=== PATIENT | female | born 2000 | race Caucasian/White ===

== ENCOUNTER 2024-05-14 20:29 | Emergency (ER) | payer OTHER, SELFPAY ==
--- NOTE | ~2024-05-14 | US_ITS ---
Pelvic ultrasound. Clinical History: First trimester , ectopic Technique: Realtime transabdominal and transvaginal scanning of the pelvis was performed. Color flow Doppler and Doppler spectral analysis were performed. Findings: The uterus is anteverted. The endometrial stripe has a thickness of 15 mm. No intrauterine gestational sac is identified. The right ovary measures 1.3 x 2.7 x 1.5 cm. No significant right ovarian or adnexal mass is seen. The left ovary measures 2.9 x 1.8 x 2.5 cm. No significant left ovarian or adnexal mass is seen. There is no evidence of free fluid in the cul de sac. Impression: Positive test without intrauterine gestation. Differential diagnosis includes early normal , spontaneous , or nonvisualized ectopic . Correlate clinically. Continued follow-up with serial beta hCG, and repeat ultrasound as warranted, is advised. Reviewed, dictated and finalized at [facility]. Impression: Positive test without intrauterine gestation. Differential diagnosis includes early normal , spontaneous , or nonvisualized ectopic . Correlate clinically. Continued follow-up with serial beta hCG, and repeat ultrasound as warranted, is advised.
[2024-05-14 20:35] VITALS: BP 138/90; PULSE 104; RESP 16; O2SAT 100
[2024-05-14 21:36] LABS: Basophils Percent Auto 0.4 % (0.2-1.2); Eosinophils Absolute Auto 0.2 K/mm3 (0-0.3); Eosinophils Percent Auto 2.5 % (0-4.4); Hematocrit 39.5 % (37.0-47.0); Hemoglobin 13.2 g/dL (12.0-15.0); Immature Granulocyte Absolute 0.01 K/mm3 (0.00-0.031); Immature Granulocyte Percent A 0.1 % (0-0.5); Lymphocytes Absolute Auto 1.64 K/mm3 (0.9-3.2); Lymphocytes Percent Auto 19.2 % (18.3-44.2); Mean Corpuscular HGB Conc 33.4 g/dl (32-36); Mean Corpuscular Hemoglobin 29.2 pg (26-34); Mean Corpuscular Volume 87.4 fl (80-100); Mean Platelet Volume 9.6 fl (7.4-10.4); Monocytes Absolute Auto 0.6 K/mm3 (0.1-0.6); Monocytes Percent Auto 6.9 % (2.6-8.5); Neutrophils Absolute Auto 6.1 K/mm3 (1.3-6.7); Neutrophils Percent Auto 70.9 % (45.5-73.1); Platelet Count Result 299 k/mm3 (150-375); Red Blood Count 4.52 M/mm3 (4.2-5.4); Red Cell Distribution Width 13.8 % (11.5-14.5); White Blood Count 8.6 K/mm3 (4.5-10.0)
[2024-05-14 21:47] LABS: Alanine Aminotransferase 26 U/L (6-35); Albumin Level 4.3 g/dL (3.5-5.1); Alkaline Phosphatase 94 U/L (38-126); Anion Gap 11 mmol/L (4-12); Aspartate Amino Transferase 25 U/L (14-36); Bilirubin,Total 0.5 mg/dL (0.2-1.3); Blood Urea Nitrogen 15 mg/dL (7-17); Calcium 8.9 mg/dL (8.4-10.2); Carbon Dioxide 23 mmol/L (22-30); Chloride 105 mmol/L (98-107); Estimated CRCL calculation 72 ml/min; Estimated Glomerular Filt Rate > 60; Glucose 98 mg/dL (65-110); Potassium 3.7 mmol/L (3.4-5.0); Prothrombin Time 13.4 Seconds (11.1-14.7); Sodium 139 mmol/L (137-145)
[2024-05-14 21:48] LABS: Partial Thromboplastin Time 28.6 Seconds (22.3-36.8)
[2024-05-14 22:04] LABS: Beta HCG Quantitative 67.89 mIU/ML
--- NOTE | 2024-05-14 22:42 | ED.FEMALEGU ---
HPI - Female Genitourinary General Chief complaint: Vaginal Bleeding Stated complaint: vag bleeding, 8 weeks Time Seen by Provider: 05/14/24 21:16 Source: patient Mode of arrival: ambulatory Limitations: no limitations History of Present Illness HPI Narrative: This is a 23-year-old female who presents to the ED with chief complaint of vaginal bleeding/ spotting that began today. Patient reports that she found out a couple of days ago at another facility that she had a positive test. Estimated to be around 8 weeks. She is 3 months And had a vaginal delivery without complication. . patient reports that today she noticed spotting on the toilet paper after intercourse with her partner. She had some mild lower abdominal cramps earlier this morning but those have been intermittent. States for currently she is asymptomatic. She has had no he significant bleeding. Denies lightheadedness, syncope, nausea, vomiting, urinary symptoms. Related Data Allergies Allergy/AdvReac Type Severity Reaction Status Date / Time No Known Allergies Allergy Verified 05/14/24 20:41 Review of Systems Review of Systems: All systems as dictated in HPI Exam Narrative: GENERAL: Well-appearing, well-nourished, and in no acute distress. HEAD: Normocephalic, atraumatic. EYES: PERRLA and EOMI. ENT: Nares clear, no rhinorrhea or epistaxis. Mucous membranes moist. Oropharynx without tonsillar hypertrophy exudate or other lesions. NECK: Supple. No adenopathy or masses. CHEST: No respiratory distress. Clear to auscultation. No wheezes rales or rhonchi HEART: Regular rate and rhythm. No murmur heard. Normal peripheral pulses. ABDOMEN: Soft, nontender, nondistended, normal active bowel sounds. MSK: Normal range of motion. No edema. SKIN: Warm, dry, no rash. NEURO: Alert and oriented x4. No focal deficits. PSYCH: Normal mood and affect. Course Reevaluation(s) Reevaluation #1: Patient is resting comfortably in the bed. Sleeping on my arrival. Date: 05/15/24 Time: 01:47 Vital Signs Vital signs: Vital Signs Pulse Rate 104 H 05/14/24 20:35 Respiratory Rate 16 05/14/24 20:35 Blood Pressure 138/90 05/14/24 20:35 Pulse Oximetry 100 05/14/24 20:35 Oxygen Delivery Room Air 05/14/24 20:35 Pulse Rate 83 05/15/24 00:12 Respiratory Rate 16 05/15/24 00:12 Blood Pressure 131/85 05/15/24 00:12 Pulse Oximetry 97 05/15/24 00:12 Oxygen Delivery Room Air 05/14/24 20:35 MDM - Female Genitourinary MDM Narrative Medical decision making narrative: This is a 23-year-old female who presents to the ED for chief complaint of vaginal bleeding with a recent positive test. Vitals are normal. Exam is benign. No evidence of acute abdomen. Lab work is grossly unremarkable. No RhoGAM required. HCG is 67.89 patient is 3 months but would expect the hCG to be minimal to none. Given the HCG today and that the ultrasound shows no , have 2 cm at this point that she did suffer a miscarriage. I discussed these findings with the patient and significant other. They are understanding and agreeable. We discussed that she needs to follow up with OB for further evaluation. Pt will be discharged in stable condition. Return precautions given and supportive measures discussed. Pt is understanding and agreeable with plan for discharge and follow-up with PCP. Lab Data 05/14/24 21:31 05/14/24 21:31 Labs: Lab Results 05/14/24 Range/Units 21:31 WBC 8.6 (4.5-10.0) K/mm3 RBC 4.52 (4.2-5.4) M/mm3 Hgb 13.2 (12.0-15.0) g/dL Hct 39.5 (37.0-47.0) % MCV 87.4 (80-100) fl MCH 29.2 (26-34) pg MCHC 33.4 (32-36) g/dl RDW 13.8 (11.5-14.5) % Plt Count 299 (150-375) k/mm3 MPV 9.6 (7.4-10.4) fl Immature Gran % (Auto) 0.1 (0-0.5) % Neut % (Auto) 70.9 (45.5-73.1) % Lymph % (Auto) 19.2 (18.3-44.2)
--- NOTE | 2024-05-14 23:05 | PC.NURSE ---
US here to take patient. Patient taken to US at this time via w/c.
[2024-05-15 00:12] VITALS: BP 131/85; PULSE 83; RESP 16; O2SAT 97
== END 2024-05-15 01:55 | disposition home or self-care (01) ==
PROVIDERS: Emergency Provider Physician Assistant
DX: N93.9 Abnormal uterine and vaginal bleeding, unspecified (principal)
CPT/HCPCS: 36415; 76801; 76817; 80053; 84702; 85025; 85461; 85610; 85730; 86850; 86900; 86901; 99284